=== PATIENT | male | born 1960 | race Caucasian/White ===

== ENCOUNTER 2017-04-10 16:39 | Emergency (ER) | payer BC ==
--- NOTE | 2017-04-10 16:59 | Emergency Department Record ---
History of Present Illness - General Chief Complaint: Knee injury Stated Complaint: RT KNEE DISLOCATION? Time Seen by Provider: 04/10/17 16:53 Source: Patient, Family Mode of Arrival: Ambulatory Limitations: No limitations - History of Present Illness Initial Comments: 56 yo male presents with a recurrent problem of feeling like his left knee cap moves out of place. He has been having pain for several weeks. He feels a popping sensation and "pushes" the patella back in place. He indicates it moves upward. No medial or lateral displacement. He he pain and popping when he does deep knee bends. No numbness or tingling MD Complaint: Knee injury -: Days(s) Injury: Knee: Right Type of Injury: Hyperflexion Place: Home Severity: Moderate Improves With: Immobilization Worsens With: Movement, Weight bearing Context: Walking Associated Symptoms: Snap/pop sensation, Able to partially bear weight - Related Data Home Medications Medication Instructions Recorded Confirmed Last Taken Albuterol Sulfate [Proair Hfa] 1 - 2 puff IH Q4-6HR inhaler 02/15/17 04/10/17 Unknown Budesonide/Formoterol Fumarate 2 puff IH BID puff 02/15/17 04/10/17 Unknown [Symbicort 160-4.5 Mcg Inhaler] Sucralfate [Carafate] 1 gm PO DAILY tab 02/15/17 04/10/17 Unknown Tiotropium [place] [Spiriva] 18 mcg IH DAILY 02/15/17 04/10/17 Unknown Previous Rx's Medication Instructions Recorded Hydrocodone/Acetaminophen [Pennock 1 each PO Q8H #18 tablet 04/10/17 7.5-325 Tablet] Allergies Allergy/AdvReac Type Severity Reaction Status Date / Time No Known Drug Allergies Allergy Unverified 02/15/17 15:49 Review of Systems Constitutional: Denies: Chills, Fever, Weakness Eyes: Denies: Eye discharge ENT: Denies: Congestion, Throat pain Respiratory: Denies: Cough Cardiovascular: Denies: Chest pain, Palpitations, Syncope Endocrine: Denies: Fatigue Gastrointestinal: Denies: Abdominal pain, Diarrhea, Nausea, Vomiting Genitourinary: Denies: Frequency Musculoskeletal: Reports: Arthralgia, Joint swelling, Myalgia. Denies: Back pain, Neck pain Skin: Denies: Bruising, Change in color, Rash Neurological: Denies: Confusion, Headache Psychiatric: Denies: Anxiety Hematological/Lymphatic: Denies: Blood Clots, Easy bleeding, Easy bruising, Swollen glands Physical Exam - General General Appearance: Alert, Oriented x3, Cooperative, No acute distress Limitations: No limitations - Head Head exam: Normal inspection - Eye Eye exam: Normal appearance - ENT ENT exam: Normal exam - Neck Neck exam: Normal inspection - Cardiovascular Peripheral Pulses: 2+: Radial (R) - Rectal Rectal exam: Deferred - exam: Deferred - Extremities Extremities exam: Joint swelling, Normal capillary refill, Tenderness. negative : Normal inspection, Full ROM Image of Full Body: 1 - on inspection likely small effusion, no redness, no warmth, patella grossly appears midline, near full extension but extreme is limited by pain, patella palpated to be midline and seems to track in an expected fashion. Mild crepitus with ROM, no calf swelling or tenderness. - Back Back exam: Reports: Full ROM - Neurological Neurological exam: Alert, Oriented X3. negative: Altered, Motor sensory deficit - Psychiatric Psychiatric exam: Normal affect, Normal mood - Skin Skin exam: Dry, Intact, Normal color, Warm. negative: Erythema, Mottled, Pallor Course - Reevaluation(s) Reevaluation #1: February 2017 Xr with tri-compartmental degenerative changes. 04/10/17 17:00 Reevaluation #2: The radiologist XR read was no acute process of the knee, mild degenerative changes Given his sensation of locking or dislocating, recommend knee immobilizer, crutches, ortho follow up 04/10/17 17:33 Disposition Disposition: Discharge Clinical Impression: Knee internal derangement Qualifiers: Laterality: right Qualified Code(s): M23.91 - Unspecified internal derangement of right knee Disposition: Home, Self-Care Condition: (1) Good Instructions: Knee Immobilizer (ED), Knee Sprain (ED) Additional Instructions: Ice to minimize swelling No weight bearing until you are pain free or evaluated by your doctor Use the brace and crutches for comfort and support You have been referred to the [facility]. Prescriptions: Hydrocodone/Acetaminophen [Pennock 7.5-325 Tablet] 1 each PO Q8H #18 tablet Referrals: MILLA CUNNINGHAM [DOCTOR OF OSTEOPATH] - [facility] [Provider Group] Forms: Patient Portal Access Time of Disposition: 17:32
[2017-04-10] MEDS ORDERED: HYDROCODONE/APAP 7.5/325MG TABLET PO ONE (17:32)
--- NOTE | 2017-04-15 10:59 | RADIOLOGY REPORT ---
EXAM: RIGHT KNEE, FOUR VIEWS HISTORY: CHRONIC RIGHT KNEE PAIN. TECHNIQUE: Four views of the right knee were obtained. Comparison: Right knee 02/15/17. FINDINGS: Small marginal osteophytes along the lateral patellar facet. The joint spaces are preserved. No acute fracture or joint effusion. IMPRESSION: MILD DEGENERATIVE CHANGE OF THE RIGHT PATELLOFEMORAL COMPARTMENT. NO ACUTE PROCESS. JOB NUMBER: [id number] MTDD
== END 2017-04-10 17:54 | disposition home or self-care (01) ==
LOC: ER 16:39
DX: M23.91 Unspecified internal derangement of right knee (principal)
CPT/HCPCS: 99283

== ENCOUNTER 2017-04-27 11:55 | Day surgery (SDC) | payer BC ==
[~2017-04-27 11:55] MED LIST: ACETAMINOPHEN 1,000 MG/100 ML BTL IV ONE
[2017-04-27] MEDS ORDERED: ONDANSETRON HCL IV 4 MG/2 ML VIAL IVP ONE (14:00)
[2017-04-27] MEDS ORDERED: BUPIVACAINE 0.25% W/EPI MPF 30ML VIAL IVP ONE (14:00)
[2017-04-27] MEDS ORDERED: PROPOFOL 10 MG/ML VIAL IV ONE (14:00)
[2017-04-27] MEDS ORDERED: SEVOFLURANE 250 ML INH ONE (14:00)
[2017-04-27] MEDS ORDERED: *PACU ONLY* KETAMINE HCL 10 MG/ML (20ML) VIAL IV ONE (14:00)
[2017-04-27] MEDS ORDERED: HYDROMORPHONE HCL 2 MG/ML VIAL IV ONE (14:00)
--- NOTE | 2017-04-28 12:56 | Operative Note ---
DATE OF SURGERY: 04/27/2017 Surgeon: Filippo Sanchez DO PREOPERATIVE DIAGNOSES: 1. Bucket-handle tear of the lateral meniscus of the right knee. 2. Synovitis of the right knee. POSTOPERATIVE DIAGNOSES: 1. Bucket-handle tear of the lateral meniscus of the right knee. 2. Synovitis of the right knee. OPERATION: 1. Arthroscopic partial lateral meniscectomy of the right knee. 2. Arthroscopic partial synovectomy of the right knee. DESCRIPTION OF PROCEDURE: This 56-year-old male was taken to the operating room, placed in the supine position on the operating room table where general anesthesia was induced. The right lower extremity was elevated. It was exsanguinated and tourniquet inflated to 300 mmHg. Arthroscopic knee ruth applied. Right knee prepped with Hibiclens and draped in the usual sterile fashion. An inferolateral portal was established for the 4 mm arthroscope. Initial evaluation of the joint was performed and the articular surface of the patellofemoral joint appeared reasonably good with only very, very minimal scuffing of both surfaces being identified. The medial compartment was entered and probing of the medial meniscus and articular cartilage in the medial compartment demonstrated normal findings. The intracondylar notch was examined and found to be normal. The lateral compartment was entered, and a displaced lateral meniscus was identified. Through an inferomedial portal, we reduced the tear and then began resecting by placing the scope in the medial portal and working portal being the lateral portal, we resected the posterior attachment and subsequently the most lateral attachment. We used the rotating shaver to resect the fragments of meniscus. This tear did enter the popliteal hiatus and was grossly unstageable, completely subluxed, dislocated to the anterior aspect of the knee. We smoothed and tapered the tear to about the 9-o'clock position. The remainder was probed and found to be normal. The wound was irrigated, suctioned, all debris removed from the joint. There was evidence of cicatrix present throughout the joint in the suprapatellar pouch as well as in the medial gutter and medial compartment which was removed from the knee. The portals were infiltrated with 0.25% Marcaine with epinephrine. Sterile dressings were applied. The patient taken to the recovery room in satisfactory condition. 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 CC: DO SAI Domínguez
== END 2017-04-27 15:40 | disposition home or self-care (01) ==
LOC: SUR 11:55
PROVIDERS: ATTEND Orthopaedic Surgery
DX: S83.251A Bucket-handle tear of lateral meniscus, current injury, right knee, initial encounter (principal); M65.861 Other synovitis and tenosynovitis, right lower leg; J44.9 Chronic obstructive pulmonary disease, unspecified
CPT/HCPCS: J2405